=== PATIENT | female | born 1955 | race African-American/Black ===

== ENCOUNTER 2018-05-09 16:02 | Inpatient (IN) | payer OTHER ==
[~2018-05-09] VITALS: Ht 167.6 cm; Wt 81.0 kg
[2018-05-09 17:24] LABS: Basophils # (auto) 0 uL; Basophils % (auto) 0.8 % (0.0-2.0); Eosinophils # (auto) 0.1 uL; Eosinophils % (auto) 1.7 % (0.0-7.0); Hematocrit 44.9 % (36.0-46.0); Hemoglobin 15.4 g/dL (12.2-16.2); Lymphocytes # (auto) 2.3 uL; Lymphocytes % (auto) 50.3 % (10.0-50.0); Mean Corpuscular Hemoglobin 28.4 pg (28.0-32.0); Mean Corpuscular Hgb Conc. 34.2 g/dL (32.0-36.0); Mean Corpuscular Volume 83.1 fL (80.0-100.0); Monocytes # (auto) 0.3 uL; Monocytes % (auto) 7.1 % (0.0-12.0); Neutrophils # (auto) 1.8 uL; Neutrophils % (auto) 40.1 % (37.0-80.0); Nucleated Red Blood Cells % 0.2 %; Platelet Count (auto) 290 10^3/uL (140-450); Red Blood Cells 5.41 10^6/uL (4.0-5.20); Red Cell Distribution Width 13.8 % (11.8-14.3); White Blood Cell 4.5 10^3/uL (4.4-10.8)
[2018-05-09 17:41] LABS: Alanine Aminotransferase 48 U/L (13-56); Anion Gap 11 (5-15); Aspartate Aminotransferase 33 U/L (15-37); BUN/Creatinine Ratio 15.3; Blood Urea Nitrogen 17 mg/dL (7-18); Calcium 9.3 mg/dL (8.5-10.1); Carbon Dioxide 25 mmol/L (21-32); Chloride 105 mmol/L (98-107); GFR African American 64 mL/min; GFR Non-African American 53 mL/min; Glucose 146 mg/dL (74-106); Magnesium 2.2 mg/dL (1.6-2.6); Potassium 3.1 mmol/L (3.5-5.1); Sodium 141 mmol/L (136-145)
[2018-05-09 17:44] LABS: Lactic Acid w/Reflex 2.3 mmol/L (0.4-2.0)
[2018-05-09 17:46] LABS: Alkaline Phosphatase 102 U/L (45-117); Bilirubin, Total 0.4 mg/dL (0.2-1.0); Total Protein 8.2 g/dL (6.4-8.2)
[2018-05-09] MEDS ORDERED: SODIUM CHLORIDE 0.9% 1,000 ML IVB ONE (18:05)
[2018-05-09] MEDS ORDERED: POTASSIUM CHL 20 Meq TABLET PO ONE (18:15)
[2018-05-09] MEDS ORDERED: ONDANSETRON HCL 4 MG/2 ML VIAL IV PRN (21:15)
[2018-05-09] MEDS ORDERED: ACETAMINOPHEN 325 MG TAB PO PRN (21:15)
[2018-05-09] MEDS ORDERED: cloNIDine HCL 0.1 MG TAB PO PRN (21:15)
[2018-05-09] MEDS ORDERED: MECLIZINE HCL 25 MG TAB PO PRN (21:15)
[2018-05-09] MEDS ORDERED: DEXTROSE (50%) 50ML SYRG IV PRN (21:15)
[2018-05-09] MEDS ORDERED: DOCUSATE SOD 100 MG CAP PO PRN (21:15)
[2018-05-09] MEDS ORDERED: MECLIZINE HCL 25 MG TAB PO ONE (21:30)
[2018-05-09 21:31] LABS: Magnesium 1.8 mg/dL (1.6-2.6)
[2018-05-09 22:15] VITALS: BP 148/88
[2018-05-09] MEDS: FAMOTIDINE 20 MG TAB PO SCH (22:28)
[2018-05-09 22:30] VITALS: BP 148/88
[2018-05-10] MEDS: ACCU-CHEK COMFORT CURVE STRIP VI SCH ×5 (00:02→23:53)
[2018-05-10] MEDS ORDERED: LISI-206 PO (03:55)
[2018-05-10] MEDS ORDERED: METF-370 PO (03:55)
[2018-05-10] MEDS ORDERED: ATOR40TA52 PO (03:55)
[2018-05-10] MEDS ORDERED: ALLO100T PO (03:55)
[2018-05-10] MEDS ORDERED: ASPI81TA27 PO (03:55)
[2018-05-10] MEDS ORDERED: SIME80CH6 PO (03:55)
[2018-05-10] MEDS ORDERED: CHLO25TA22 PO (03:55)
[2018-05-10] MEDS ORDERED: DICY10CA12 PO (03:55)
[2018-05-10] MEDS ORDERED: DILT60TA27 PO (03:55)
[2018-05-10 05:07] VITALS: BP 126/79
[2018-05-10] MEDS: InsuLIN REG 1unit/0.01ml Soln (100units/ml) SC SCH ×5 (06:00→23:53)
[2018-05-10 07:25] LABS: Urine Bacteria FEW /hpf (None Seen); Urine Blood Negative /uL (Negative); Urine Mucus FEW (None Seen); Urine Specific Gravity 1.021 (1.001-1.035); Urine WBC 73 /hpf (0 - 5)
[2018-05-10 07:33] LABS: BUN/Creatinine Ratio 14.6; Bilirubin, Total 0.6 mg/dL (0.2-1.0); Calcium 8.9 mg/dL (8.5-10.1); Potassium 3.8 mmol/L (3.5-5.1)
[2018-05-10 07:36] LABS: Hematocrit 44.8 % (36.0-46.0); Mean Corpuscular Hemoglobin 27.8 pg (28.0-32.0); Mean Corpuscular Hgb Conc. 33.5 g/dL (32.0-36.0); Platelet Count (auto) 284 10^3/uL (140-450); Red Blood Cells 5.39 10^6/uL (4.0-5.20); Red Cell Distribution Width 13.6 % (11.8-14.3); White Blood Cell 4.3 10^3/uL (4.4-10.8)
[2018-05-10 07:55] LABS: Band Neutrophils % (manual) 0; Basophils % (manual) 0 (0.0-2.0); Blast Cells 0; Metamyelocytes % 0; Myelocytes % 0; Promyelocytes % 0
[2018-05-10 09:00] VITALS: BP 115/73
[2018-05-10] MEDS: ENOXAPARIN SOD 40 MG/0.4 ML SYRINGE SC SCH (09:49)
[2018-05-10] MEDS: FAMOTIDINE 20 MG TAB PO SCH ×2 (09:50→22:00)
[2018-05-10] MEDS ORDERED: ALLOPURINOL 100 MG TAB PO SCH (10:00)
[2018-05-10] MEDS ORDERED: LISINOPRIL 10 MG TAB PO SCH (10:00)
[2018-05-10] MEDS ORDERED: cefTRIAXone 1GM/10ml IVPUSH 10 ML IV ONE (11:00)
[2018-05-10 11:26] LABS: Cholesterol 183 mg/dL (< 200); HDL Cholesterol 48 mg/dL (40-59); LDL Cholesterol 113 mg/dL (< 100); Triglycerides 142 mg/dL (< 150)
[2018-05-10] MEDS ORDERED: ASPirin-EC 81 mg tab PO ONE (11:30)
[2018-05-10 11:32] LABS: Eosinophils % (manual) 3 (0-7); Lymphocytes % (manual) 51 (10.0-50.0); Monocytes % (manual) 9 (0-12); Reactive Lymphocytes 3
[2018-05-10] MEDS: DILTIAZEM HCL 60 MG TAB PO SCH ×3 (12:25→22:09)
[2018-05-10 13:00] VITALS: BP_SYST 143; BP_DIAS 15; BP_DIAS 75
[2018-05-10 15:56] LABS: Folate (Folic Acid) 12.71 ng/mL (5.38-24)
[2018-05-10 16:50] VITALS: BP 139/71
[2018-05-10] MEDS ORDERED: LORazepam 2MG/ML-1ML VIAL IV PRN (19:00)
[2018-05-10 20:00] VITALS: BP 134/77
[2018-05-10 22:00] VITALS: BP 134/77
[2018-05-10] MEDS: ATORVASTATIN 20 MG TAB PO SCH (22:08)
[2018-05-11 05:00] VITALS: BP 134/75
[2018-05-11] MEDS: InsuLIN REG 1unit/0.01ml Soln (100units/ml) SC SCH ×3 (06:00→17:32)
[2018-05-11] MEDS: ACCU-CHEK COMFORT CURVE STRIP VI SCH ×3 (06:07→17:32)
[2018-05-11] MEDS: DILTIAZEM HCL 60 MG TAB PO SCH ×4 (06:07→22:04)
[2018-05-11 08:15] VITALS: BP 132/80
[2018-05-11 09:00] VITALS: BP 132/80
[2018-05-11] MEDS: cefTRIAXone 1GM/10ml IVPUSH 10 ML IV SCH (09:50)
[2018-05-11] MEDS: FAMOTIDINE 20 MG TAB PO SCH ×2 (09:50→22:04)
[2018-05-11] MEDS: ASPirin-EC 81 mg tab PO SCH (09:51)
[2018-05-11] MEDS: ALLOPURINOL 100 MG TAB PO SCH (09:52)
[2018-05-11] MEDS: LISINOPRIL 10 MG TAB PO SCH (09:52)
[2018-05-11] MEDS: ENOXAPARIN SOD 40 MG/0.4 ML SYRINGE SC SCH (09:53)
[2018-05-11 12:53] VITALS: BP 130/70
[2018-05-11 16:33] VITALS: BP 138/78
[2018-05-11 22:00] VITALS: BP 121/66
[2018-05-11] MEDS: ATORVASTATIN 20 MG TAB PO SCH (22:04)
[2018-05-12] MEDS: ACCU-CHEK COMFORT CURVE STRIP VI SCH ×5 (00:02→23:35)
[2018-05-12] MEDS: DILTIAZEM HCL 60 MG TAB PO SCH ×4 (05:24→22:00)
[2018-05-12 05:29] VITALS: BP 102/62
[2018-05-12] MEDS: InsuLIN REG 1unit/0.01ml Soln (100units/ml) SC SCH ×5 (05:47→23:35)
[2018-05-12 09:18] VITALS: BP 96/69
[2018-05-12] MEDS: FAMOTIDINE 20 MG TAB PO SCH ×2 (09:22→21:53)
[2018-05-12] MEDS: ASPirin-EC 81 mg tab PO SCH (09:22)
[2018-05-12] MEDS: ENOXAPARIN SOD 40 MG/0.4 ML SYRINGE SC SCH (09:22)
[2018-05-12] MEDS: cefTRIAXone 1GM/10ml IVPUSH 10 ML IV SCH (09:23)
[2018-05-12] MEDS: LISINOPRIL 10 MG TAB PO SCH (09:23)
[2018-05-12] MEDS: ALLOPURINOL 100 MG TAB PO SCH (09:23)
[2018-05-12 12:30] VITALS: BP 130/75
[2018-05-12 17:03] VITALS: BP 119/70
[2018-05-12 20:00] VITALS: BP 119/78
[2018-05-12] MEDS: ATORVASTATIN 20 MG TAB PO SCH (21:53)
[2018-05-12 22:21] VITALS: BP 119/78
[2018-05-13 05:23] VITALS: BP 133/80
[2018-05-13] MEDS: ACCU-CHEK COMFORT CURVE STRIP VI SCH (05:51)
[2018-05-13] MEDS: InsuLIN REG 1unit/0.01ml Soln (100units/ml) SC SCH (05:52)
[2018-05-13] MEDS: DILTIAZEM HCL 60 MG TAB PO SCH (06:29)
[2018-05-13 09:00] VITALS: BP 123/82
[2018-05-13] MEDS: ENOXAPARIN SOD 40 MG/0.4 ML SYRINGE SC SCH (10:51)
[2018-05-13] MEDS: ALLOPURINOL 100 MG TAB PO SCH (10:51)
[2018-05-13] MEDS: cefTRIAXone 1GM/10ml IVPUSH 10 ML IV SCH (10:51)
[2018-05-13] MEDS: ASPirin-EC 81 mg tab PO SCH (10:52)
[2018-05-13] MEDS: LISINOPRIL 10 MG TAB PO SCH (10:52)
[2018-05-13] MEDS: FAMOTIDINE 20 MG TAB PO SCH (10:52)
== END 2018-05-13 13:50 | disposition home or self-care (01) | DRG 690 ==
LOC: ER 16:02 → OVERFLOW 16:03 → WEST WING 22:19
PROVIDERS: ADMIT Nurse Practitioner; ATTEND Family Medicine
DX: N39.0 Urinary tract infection, site not specified (principal); H81.10 Benign paroxysmal vertigo, unspecified ear; E87.6 Hypokalemia; F17.200 Nicotine dependence, unspecified, uncomplicated; F32.9 Major depressive disorder, single episode, unspecified; F41.9 Anxiety disorder, unspecified; I11.9 Hypertensive heart disease without heart failure; E11.43 Type 2 diabetes mellitus with diabetic autonomic (poly)neuropathy; K58.9 Irritable bowel syndrome, unspecified; E66.3 Overweight; E78.00 Pure hypercholesterolemia, unspecified; G90.9 Disorder of the autonomic nervous system, unspecified; Z79.4 Long term (current) use of insulin; Z82.49 Family history of ischemic heart disease and other diseases of the circulatory system; Z82.0 Family history of epilepsy and other diseases of the nervous system; Z90.710 Acquired absence of both cervix and uterus; Z90.49 Acquired absence of other specified parts of digestive tract; Z88.8 Allergy status to other drugs, medicaments and biological substances; Z91.041 Radiographic dye allergy status; Z68.28 Body mass index [BMI] 28.0-28.9, adult
CPT/HCPCS: 36415; 70450; 70551; 71045; 80053; 80061; 81001; 82607; 82746; 82962; 83605; 83735; 83880; 84443; 84484; 85007; 85025; 85027; 85652; 87040; 87086; 93005; 93306; 93886; 94761; 95819; 96360; 96361; J0696

== ENCOUNTER 2019-01-25 16:56 | Emergency (ER) | payer OTHER ==
[~2019-01-25] VITALS: Ht 167.6 cm; Wt 76.2 kg
[~2019-01-25 16:56] MED LIST: ALLO100T PO; ASPI81TA27 PO; ATOR40TA52 PO; CHLO25TA22 PO; DICY10CA12 PO; DILT60TA27 PO; LISI-710 PO; METF-370 PO; SIME80CH6 PO
[2019-01-25] MEDS ORDERED: cloNIDine HCL 0.1 MG TAB PO ONE (18:30)
[2019-01-25 18:57] VITALS: BP 176/79
[2019-01-25] MEDS ORDERED: IPRATROPIUM BROM 0.5 MG/2.5ML INH SOL NEB ONE (19:30)
[2019-01-25] MEDS ORDERED: ALBUTEROL SULF 2.5 MG/0.5ML(0.5%) NEB SOLN NEB ONE (19:30)
== END 2019-01-25 20:06 | disposition home or self-care (01) ==
LOC: ER 16:58
DX: J40 Bronchitis, not specified as acute or chronic (principal); I10 Essential (primary) hypertension; J70.5 Respiratory conditions due to smoke inhalation; E11.9 Type 2 diabetes mellitus without complications; Z90.49 Acquired absence of other specified parts of digestive tract; Z90.710 Acquired absence of both cervix and uterus
CPT/HCPCS: 71046; 94640; 99283; J7611; J7644

== ENCOUNTER 2020-04-15 19:43 | Emergency (ER) | payer OTHER ==
[~2020-04-15] VITALS: Ht 167.6 cm; Wt 78.0 kg
[~2020-04-15 19:43] MED LIST changes: +ASPI-404 PO; -ASPI81TA27 PO
[2020-04-15 21:44] VITALS: BP 162/84
[2020-04-15] MEDS ORDERED: TETANUS-DIPTH-ACEL PERTUSSIS 0.5ML SYR Tdap IM ONE (22:30)
== END 2020-04-15 22:48 | disposition home or self-care (01) ==
LOC: ER 19:43
DX: S91.331A Puncture wound without foreign body, right foot, initial encounter (principal); E11.9 Type 2 diabetes mellitus without complications; I10 Essential (primary) hypertension; Z90.49 Acquired absence of other specified parts of digestive tract; Z90.710 Acquired absence of both cervix and uterus; W25.XXXA Contact with sharp glass, initial encounter; Y92.89 Other specified places as the place of occurrence of the external cause; Y99.8 Other external cause status
CPT/HCPCS: 73630; 82962; 90471; 90715

== ENCOUNTER 2021-05-06 14:48 | Emergency (ER) | payer OTHER ==
[~2021-05-06] VITALS: Ht 167.6 cm; Wt 78.0 kg
[~2021-05-06 14:48] MED LIST changes: -ASPI-404 PO; +ASPI-543 PO; +CHLO25TA2 PO; -CHLO25TA22 PO; +DILT60TA PO; -DILT60TA27 PO
[2021-05-06] MEDS ORDERED: TETANUS-DIPTH-ACEL PERTUSSIS 0.5ML SYR Tdap IM ONE (16:00)
[2021-05-06 16:12] VITALS: BP 158/68
== END 2021-05-06 16:29 | disposition home or self-care (01) ==
LOC: ER 14:50
DX: S91.332A Puncture wound without foreign body, left foot, initial encounter (principal); E11.9 Type 2 diabetes mellitus without complications; I10 Essential (primary) hypertension; Z90.49 Acquired absence of other specified parts of digestive tract; Z90.710 Acquired absence of both cervix and uterus; Z79.82 Long term (current) use of aspirin; Z79.899 Other long term (current) drug therapy; Z88.8 Allergy status to other drugs, medicaments and biological substances; W45.0XXA Nail entering through skin, initial encounter; Y93.89 Activity, other specified; Y92.89 Other specified places as the place of occurrence of the external cause; Y99.8 Other external cause status
CPT/HCPCS: 90471; 90715

== ENCOUNTER 2022-06-11 17:02 | Emergency (ER) | payer OTHER ==
[~2022-06-11] VITALS: Ht 167.6 cm; Wt 78.0 kg
[2022-06-11] MEDS ORDERED: cloNIDine HCL 0.1 MG TAB PO ONE (17:30)
[2022-06-11] MEDS ORDERED: FUROSEMIDE 20 MG TAB PO ONE (19:15)
[2022-06-11 20:02] LABS: Basophils # (auto) 0 10 ^3/uL (0-0.2); Eosinophils # (auto) 0.1 10 ^3/uL (0-0.8); Eosinophils % (auto) 2.6 % (0.0-7.0); Hematocrit 41.5 % (36.0-46.0); Hemoglobin 13.5 g/dL (12.2-16.2); Lymphocytes # (auto) 1.8 10 ^3/uL (0.4-5.4); Lymphocytes % (auto) 50.8 % (10.0-50.0); Mean Corpuscular Hemoglobin 27.2 pg (28.0-32.0); Mean Corpuscular Hgb Conc. 32.5 g/dL (32.0-36.0); Mean Corpuscular Volume 83.7 fL (80.0-100.0); Monocytes # (auto) 0.3 10 ^3/uL (0-1.3); Monocytes % (auto) 8.8 % (0.0-12.0); Neutrophils # (auto) 1.3 10 ^3/uL (1.6-8.6); Neutrophils % (auto) 36.8 % (37.0-80.0); Nucleated Red Blood Cells % 0.2 %; Red Blood Cells 4.96 10^6/uL (4.0-5.20); Red Cell Distribution Width 13.3 % (11.8-14.3); White Blood Cell 3.5 10^3/uL (4.4-10.8)
[2022-06-11 20:21] LABS: Albumin 3.4 g/dL (3.4-5.0); BUN/Creatinine Ratio 8.3; Calcium 8.4 mg/dL (8.5-10.1); Potassium 3.6 mmol/L (3.5-5.1)
[2022-06-11 20:24] LABS: Bilirubin, Total 0.4 mg/dL (0.2-1.0); Total Protein 6.9 g/dL (6.4-8.2)
[2022-06-11] MEDS ORDERED: LABETALOL HCL 5 MG/ML 4ML SYRINGE IV ONE (20:30)
[2022-06-11] MEDS ORDERED: FURO1TAB33 PO (22:09)
[2022-06-11 22:40] VITALS: BP 156/75
== END 2022-06-11 22:49 | disposition home or self-care (01) ==
LOC: ER 17:02
DX: R60.0 Localized edema (principal); I10 Essential (primary) hypertension; E11.9 Type 2 diabetes mellitus without complications; M10.9 Gout, unspecified; Z90.49 Acquired absence of other specified parts of digestive tract; Z90.710 Acquired absence of both cervix and uterus; Z79.82 Long term (current) use of aspirin; Z79.899 Other long term (current) drug therapy; Z88.8 Allergy status to other drugs, medicaments and biological substances
CPT/HCPCS: 36415; 80053; 83880; 84484; 85025; 93005; 93971

== ENCOUNTER 2022-06-19 20:14 | Emergency (ER) | payer OTHER ==
[~2022-06-19] VITALS: Ht 167.6 cm; Wt 77.0 kg
[~2022-06-19 20:14] MED LIST changes: +FURO1TAB33 PO
[2022-06-20 04:39] VITALS: BP 178/84
[2022-06-20] MEDS ORDERED: DICL75TA2 PO (05:04)
== END 2022-06-20 05:19 | disposition home or self-care (01) ==
LOC: ER 20:15
DX: M25.532 Pain in left wrist (principal); E11.9 Type 2 diabetes mellitus without complications; I10 Essential (primary) hypertension; M10.9 Gout, unspecified; Z90.49 Acquired absence of other specified parts of digestive tract; Z90.710 Acquired absence of both cervix and uterus; Z79.899 Other long term (current) drug therapy; Z91.041 Radiographic dye allergy status
CPT/HCPCS: 29125; 73110

== ENCOUNTER 2023-11-11 15:00 | Inpatient (IN) | payer MEDICARE, OTHER ==
[~2023-11-11] VITALS: Ht 167.6 cm; Wt 87.6 kg
[~2023-11-11 15:00] MED LIST changes: +DICL75TA2 PO; +SIME80CH49 PO; -SIME80CH6 PO
[2023-11-11 15:48] LABS: Basophils # (auto) 0 10 ^3/uL (0-0.2); Basophils % (auto) 0.7 % (0.0-2.0); Eosinophils # (auto) 0.2 10 ^3/uL (0-0.8); Eosinophils % (auto) 3.2 % (0.0-7.0); Hematocrit 43.5 % (36.0-46.0); Hemoglobin 14.6 g/dL (12.2-16.2); Lymphocytes # (auto) 2.5 10 ^3/uL (0.4-5.4); Lymphocytes % (auto) 50.1 % (10.0-50.0); Mean Corpuscular Hemoglobin 28.2 pg (28.0-32.0); Mean Corpuscular Hgb Conc. 33.6 g/dL (32.0-36.0); Mean Corpuscular Volume 83.9 fL (80.0-100.0); Monocytes # (auto) 0.4 10 ^3/uL (0-1.3); Monocytes % (auto) 8.4 % (0.0-12.0); Neutrophils # (auto) 1.9 10 ^3/uL (1.6-8.6); Neutrophils % (auto) 37.6 % (37.0-80.0); Nucleated Red Blood Cells % 0.9 %; Red Blood Cells 5.18 10^6/uL (4.0-5.20); White Blood Cell 5.1 10^3/uL (4.4-10.8)
[2023-11-11 16:06] LABS: Alanine Aminotransferase 41 U/L (7-40); Albumin 4.4 g/dL (3.2-4.8); Alkaline Phosphatase 104 U/L (46-116); Anion Gap 5 (5-15); Aspartate Aminotransferase 40 U/L (13-40); BUN/Creatinine Ratio 7.5 (10.0-20.0); Bilirubin, Total 0.5 mg/dL (0.2-1.0); Blood Urea Nitrogen 7 mg/dL (9-23); Calcium 9.8 mg/dL (8.5-10.1); Carbon Dioxide 29 mmol/L (20-30); Chloride 107 mmol/L (98-107); Glucose 114 mg/dL (74-106); Potassium 3.7 mmol/L (3.5-5.1); Sodium 141 mmol/L (136-145); Total Protein 7.4 g/dL (5.7-8.2)
[2023-11-11] MEDS ORDERED: DEXTROSE (50%) 50ML SYRG IV PRN (17:15)
[2023-11-11] MEDS ORDERED: DOCUSATE SOD 100 MG CAP PO PRN (17:15)
[2023-11-11] MEDS ORDERED: MORPHINE SULFATE INJ 2 MG/ml SYRG IV PRN (17:15)
[2023-11-11] MEDS ORDERED: MECLIZINE HCL 25 MG TAB PO PRN (17:15)
[2023-11-11] MEDS ORDERED: ONDANSETRON HCL 4 MG/2 ML VIAL IV PRN (17:15)
[2023-11-11 18:26] LABS: Magnesium 1.9 mg/dL (1.6-2.6)
[2023-11-11] MEDS: SODIUM CHLORIDE 0.9% 1,000 ML IV SCH (20:48)
[2023-11-11] MEDS: InsuLIN REG 1unit/0.01ml Soln (100units/ml) SC SCH (22:00)
[2023-11-11] MEDS: ACCU-CHEK COMFORT CURVE STRIP VI SCH (22:02)
[2023-11-11] MEDS: ATORVASTATIN 20 MG TAB PO SCH (22:09)
[2023-11-12] VITALS (8 sets, daily range): BP systolic 137–160; BP diastolic 75–95; PULSE 56–94; RESP 16–20; TEMP 97.7–98.2; O2SAT 93–97
[2023-11-12] MEDS ORDERED: CETI-120 PO (02:54)
[2023-11-12] MEDS ORDERED: AMLO1TAB23 PO (02:54)
[2023-11-12] MEDS ORDERED: LOSA100T58 PO (02:54)
[2023-11-12] MEDS ORDERED: EZET-10 PO (02:54)
[2023-11-12] MEDS ORDERED: CHOL1TAB42 PO (02:54)
[2023-11-12] MEDS: amLODIPine BESYLATE 5 MG TAB PO SCH (06:40)
[2023-11-12] MEDS: LOSARTAN POTASSIUM 25 MG TAB PO SCH (06:41)
[2023-11-12 07:36] LABS: Basophils # (auto) 0 10 ^3/uL (0-0.2); Basophils % (auto) 0.6 % (0.0-2.0); Eosinophils # (auto) 0.1 10 ^3/uL (0-0.8); Eosinophils % (auto) 3.5 % (0.0-7.0); Hematocrit 40.5 % (36.0-46.0); Hemoglobin 13.7 g/dL (12.2-16.2); Lymphocytes # (auto) 2.1 10 ^3/uL (0.4-5.4); Lymphocytes % (auto) 48.2 % (10.0-50.0); Mean Corpuscular Hemoglobin 28.6 pg (28.0-32.0); Mean Corpuscular Hgb Conc. 33.9 g/dL (32.0-36.0); Mean Corpuscular Volume 84.3 fL (80.0-100.0); Monocytes # (auto) 0.4 10 ^3/uL (0-1.3); Monocytes % (auto) 8.7 % (0.0-12.0); Neutrophils # (auto) 1.7 10 ^3/uL (1.6-8.6); Nucleated Red Blood Cells % 0.2 %; White Blood Cell 4.3 10^3/uL (4.4-10.8)
[2023-11-12 07:47] LABS: Alanine Aminotransferase 38 U/L (7-40); Albumin 3.9 g/dL (3.2-4.8); Alkaline Phosphatase 86 U/L (46-116); Anion Gap 8 (5-15); Aspartate Aminotransferase 36 U/L (13-40); BUN/Creatinine Ratio 10.8 (10.0-20.0); Blood Urea Nitrogen 9 mg/dL (9-23); Calcium 8.9 mg/dL (8.7-10.4); Carbon Dioxide 24 mmol/L (20-30); Chloride 109 mmol/L (98-107); Glucose 101 mg/dL (74-106); Potassium 3.7 mmol/L (3.5-5.1); Sodium 141 mmol/L (136-145)
[2023-11-12 07:48] LABS: Bilirubin, Total 0.8 mg/dL (0.2-1.0); Total Protein 6.7 g/dL (5.7-8.2)
[2023-11-12] MEDS: ASPirin 81 mg TAB PO SCH (09:39)
[2023-11-12] MEDS: METOPROLOL TARTRATE 50 MG TAB PO ONE (14:48)
[2023-11-12] MEDS: METOPROLOL TARTRATE 50 MG TAB PO SCH (22:00)
[2023-11-12] MEDS ORDERED: LORazepam 2MG/ML-1ML VIAL IV PRN (23:30)
[2023-11-13] VITALS (7 sets, daily range): BP systolic 127–150; BP diastolic 65–83; PULSE 52–66; RESP 16–71; TEMP 97.6–98.7; O2SAT 94–98
[2023-11-14 04:50] VITALS: BP 148/88; PULSE 66; RESP 16; TEMP 97.7; O2SAT 97
[2023-11-14 08:00] VITALS: BP 129/72; PULSE 57; PULSE 62; RESP 14; TEMP 97.6; O2SAT 95
[2023-11-14 09:00] VITALS: BP 129/72; PULSE 60; RESP 14; TEMP 97.3; O2SAT 95
[2023-11-14] MEDS ORDERED: METO-158 PO (10:18)
[2023-11-14] MEDS ORDERED: MECL25CH85 PO (10:18)
[2023-11-14 12:08] VITALS: BP 129/73; PULSE 57; RESP 17; TEMP 36.3; O2SAT 95
== END 2023-11-14 14:03 | disposition home or self-care (01) | DRG 305 ==
LOC: ER 15:00 → TELE 17:24 → TELE-WESTW 11-12 00:22
PROVIDERS: ADMIT Nurse Practitioner Family; ATTEND Family Medicine
DX: I16.0 Hypertensive urgency (principal); R00.2 Palpitations; I11.0 Hypertensive heart disease with heart failure; I50.9 Heart failure, unspecified; E66.9 Obesity, unspecified; I45.81 Long QT syndrome; E78.00 Pure hypercholesterolemia, unspecified; K58.9 Irritable bowel syndrome, unspecified; E11.9 Type 2 diabetes mellitus without complications; M1A.9XX0 Chronic gout, unspecified, without tophus (tophi); Z88.8 Allergy status to other drugs, medicaments and biological substances; Z91.041 Radiographic dye allergy status; Z90.710 Acquired absence of both cervix and uterus; Z79.899 Other long term (current) drug therapy; Z90.711 Acquired absence of uterus with remaining cervical stump; Z68.31 Body mass index [BMI] 31.0-31.9, adult; Z87.891 Personal history of nicotine dependence; Z82.0 Family history of epilepsy and other diseases of the nervous system; Z82.49 Family history of ischemic heart disease and other diseases of the circulatory system
CPT/HCPCS: 36415; 70450; 70551; 71045; 80053; 82962; 83735; 83880; 84100; 84443; 84484; 85025; 93005; 93306; 93886; 95819; G0378